=== PATIENT | female | born 1995 | race Caucasian/White ===

== ENCOUNTER 2019-09-30 11:09 | Emergency (ER) | payer BC ==
[~2019-09-30] VITALS: Ht 167.6 cm; Wt 54.4 kg
--- NOTE | 2019-09-30 11:16 | Emergency Department Note ---
History of Present Illnes History of Present Illness Chief Complaint: COVID PUI History of Present Illness This is a 24 year old female presents to the ED for fever and sore throat since this AM. . 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 Any updates have been documented here. Past Medical History Recent Fever: No Clinical Suspicion of Infectio: No New/Unexplained Change in Ment: No Past Medical History: None Past Surgical History: None Social History Smoking Cessation: Former smoker Alcohol Use: None Any Illegal Drug Use: No Other Last Tetanus: UTD Review of Systems Review of Systems Constitutional: Reports no symptoms EENTM: Reports throat pain Cardiovascular: Reports no symptoms Respiratory: Reports no symptoms Gastrointestinal: Reports no symptoms Genitourinary: Reports no symptoms Musculoskeletal: Reports no symptoms Integumentary: Reports no symptoms Neurological: Reports no symptoms Psychological: Reports no symptoms Endocrine: Reports no symptoms Hematological/Lymphatic: Reports no symptoms Physical Exam Related Data Allergies: Coded Allergies: No Known Allergies (Unverified , 09/30/19) Triage Vital Signs Vital Signs Date Time Temp Pulse Resp B/P (MAP) Pulse Ox O2 Delivery O2 Flow Rate FiO2 09/30/19 11:11 98.7 77 16 123/85 99 Physical Exam CONSTITUTIONAL Constitutional: Reports well-developed, Reports well-nourished HENT HENT: Reports normocephalic, Reports atraumatic, Reports oropharynx clear/moist, Reports nose normal HENT L/R: Reports left ext ear normal, Reports right ext ear normal EYES Eyes: Reports PERRL, Reports conjunctivae normal NECK Neck: Reports ROM normal PULMONARY Pulmonary: Reports effort normal, Reports breath sounds normal CARDIOVASCULAR Cardiovascular: Reports regular rhythm, Reports heart sounds normal, Reports capillary refill normal, Reports normal rate GASTROINTESTINAL Abdominal: Reports soft, Reports nontender, Reports bowel sounds normal GENITOURINARY Genitourinary: Reports exam deferred SKIN Skin: Reports warm, Reports dry MUSCULOSKELETAL Musculoskeletal: Reports ROM normal NEUROLOGICAL Neurological: Reports alert, Reports oriented x 3, Reports no gross motor or sensory deficits PSYCHOLOGICAL Psychological: Reports mood/affect normal, Reports judgement normal Assessment & Plan Medical Decision Making MDM 24 yof presents to the ED for sore throat and tactile fevers. (+) exposure to family member with COVID-19. COVID-19 test pending at this time. Patient instructed to self-quarantine Assessment & Plan Final Impression: (1) Upper respiratory infection Last Vital Signs Date Time Temp Pulse Resp B/P (MAP) Pulse Ox O2 Delivery O2 Flow Rate FiO2 09/30/19 11:11 98.7 77 16 123/85 99 LANDON ADAMS DO Sep 30, 2019 11:16
== END 2019-09-30 11:15 | disposition home or self-care (01) ==
LOC: ER 11:12
DX: R50.9 Fever, unspecified (principal); R53.81 Other malaise; J06.9 Acute upper respiratory infection, unspecified; Z11.59 Encounter for screening for other viral diseases
CPT/HCPCS: 87635; 99282